=== PATIENT | female | born 1965 | race Caucasian/White ===

== ENCOUNTER → 2022-02-10 | Day surgery (SDC) | payer OTHER ==
[~2022-02-10] VITALS: Ht 172.7 cm; Wt 83.9 kg
[~2022-02-10] MED LIST: IBUPROFEN800 M1 PO; SYNTHROID100 MCG PO
[2022-02-10 11:16] LABS: HCG (URINE) SCREEN NEGATIVE (NEGATIVE)
== END | disposition home or self-care (01) ==
LOC: FAS 10:48
PROVIDERS: Anesthesiology
DX: N95.0 Postmenopausal bleeding (principal); N83.202 Unspecified ovarian cyst, left side; E03.9 Hypothyroidism, unspecified; Z88.2 Allergy status to sulfonamides
CPT/HCPCS: 84703; J1100; J1885; J2250; J2405; J2704; J3010; J7120